=== PATIENT | female | born 1975 | race Caucasian/White ===

== ENCOUNTER 2018-05-25 12:43 | Emergency (ER) | payer MEDICAID ==
[2018-05-25 13:05] VITALS: BP 133/64
[2018-05-25] MEDS ORDERED: Proparacaine 0.5% Ophth Soln 15 ML Bottle EYEBOTH STA (13:38)
--- NOTE | 2018-05-25 13:54 | EDM.PDOC ---
ED HPI GENERAL MEDICAL PROBLEM - General Chief Complaint: Eye Problems Stated Complaint: POSSIBLE SMALL PARTICLE IN LEFT EYE Time Seen by Provider: 05/25/18 13:34 Source of Information: Reports: Patient, Family, RN Notes Reviewed History Limitations: Reports: No Limitations - History of Present Illness INITIAL COMMENTS - FREE TEXT/NARRATIVE: 42-year-old female presents to the emergency department day complaint of pain in her left thigh, she was doing some woodworking yesterday feels she may have gotten a piece of something in her eye and she was wearing safety glasses, Bilateral Eye Pain Score (Numeric/FACES): 6 - Related Data Allergies Allergy/AdvReac Type Severity Reaction Status Date / Time No Known Allergies Allergy Verified 09/28/16 10:36 Home Meds: Home Meds ALPRAZolam [Xanax] 0.25 mg PO TID PRN 09/26/16 [History] Baclofen 1.5 tab PO TID 09/26/16 [History] Cholecalciferol (Vitamin D3) [Vitamin D3] 5,000 unit PO ASDIRECTED 09/26/16 [ History] Cyanocobalamin (Vitamin B12) [Vitamin B12] 1,000 mcg IJ Q21D 09/26/16 [History] Doxepin HCl [Doxepin] 100 mg PO BEDTIME 09/26/16 [History] Folic Acid 1 mg PO DAILY 09/26/16 [History] Hydrochlorothiazide 25 mg PO DAILY 09/26/16 [History] Levothyroxine Sodium [Synthroid] 200 mcg PO ACBREAKFAST 09/26/16 [History] Multivitamins [Childrens Chewable Vitamin] 1 tab PO BID 09/26/16 [History] Nystatin [Nystatin Crm] 1 applic TP ASDIRECTED 09/26/16 [History] Omeprazole Magnesium [Prilosec Otc] 40 mg PO ACBREAKFAST 09/26/16 [History] Ondansetron [Zofran] 2 tab PO Q8H PRN 09/26/16 [History] Pregabalin [Lyrica] 50 mg PO TID 09/26/16 [History] Venlafaxine [Effexor XR] 150 mg PO DAILY 09/26/16 [History] Vitamin B Complex [B Complex] 1 tab PO DAILY 09/26/16 [History] buPROPion HCl [Wellbutrin Xl] 450 mg PO DAILY 09/26/16 [History] rOPINIRole [Requip] 0.25 mg PO BEDTIME 09/26/16 [History] traZODone 100 mg PO BEDTIME 09/26/16 [History] Morphine [MS Contin] 30 mg PO BID 09/28/16 [History] Acetaminophen/oxyCODONE [Percocet 325-5 MG] 1 - 2 tab PO Q4H PRN #50 tablet 10/19 [Rx] Bisacodyl [Dulcolax] 10 mg PO BID #100 tablet 10/04/16 [Rx] Docusate Sodium [Colace] 100 mg PO BID #100 cap 10/04/16 [Rx] Enoxaparin Sodium [Lovenox] 100 mg IM DAILY #4 ml 10/04/16 [Rx] Hydrocodone/Acetaminophen [Hydrocodon-Acetaminophen 5-325] 1 tab PO QID #0 10/04 [Rx] Warfarin [Coumadin] 2.5 mg PO ASDIRECTED #0 10/04/16 [Rx] Past Medical History HEENT History: Reports: Allergic Rhinitis, Impaired Vision Cardiovascular History: Reports: Hypertension Gastrointestinal History: Reports: Bowel Obstruction, Cholelithiasis, Chronic Constipation, Colon Polyp, GERD, Pancreatitis [employer]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: , Spontaneous Musculoskeletal History: Reports: Back Pain, Chronic, Fracture Psychiatric History: Reports: Anxiety, Depression Endocrine/Metabolic History: Reports: Hypothyroidism, Obesity/BMI 30+ Hematologic History: Reports: Blood Transfusion(s) - Infectious Disease History Infectious Disease History: Reports: Chicken Pox - Past Surgical History Cardiovascular Surgical History: Reports: None GI Surgical History: Reports: Bariatric Procedure, Cholecystectomy, Colonoscopy , Hernia, Abdominal, Hernia Repair/Other, Other (See Below) Female Surgical History: Reports: Section, D&C, Tubal Ligation Endocrine Surgical History: Reports: None Neurological Surgical History: Reports: Discectomy, Spinal Fusion Social & Family History - Tobacco Use Smoking Status *Q: Never Smoker - Caffeine Use Caffeine Use: Reports: Coffee, Tea - Recreational Drug Use Recreational Drug Use: No ED ROS GENERAL - Review of Systems Review Of Systems: See Below HEENT: Reports: Eye Discharge, Eye Pain ED EXAM GENERAL W FULL EYE - Physical Exam Exam: See Below Exam Limited By: No Limitations General Appearance: Alert, WD/WN, No Apparent Distress Eye Exam: Left Eye: Corneal Abrasion, Foreign Body, Bilateral Eye: EOMI, Normal Inspection, PERRL Visual Acuity (L) 20/: 100 With Correction: Yes Eyelids: Left: Foreign Body Conjunctiva & Sclera: Bilateral: Normal Appearance Cornea Exam: Right: Normal Appearance, Left: Corneal Abrasion Extraocular Movements: Bilateral: Intact Pupils: Normal Accommodation Pupillary Size: Bilateral: 5 mm Pupillary Reaction: Bilateral: Brisk Anterior Chamber: Bilateral: Normal Appearance Respiratory/Chest: No Respiratory Distress Course - Vital Signs Last Recorded V/S: Last Vital Signs Temp 97.0 F 05/25/18 13:06 Pulse 85 05/25/18 13:06 Resp 16 05/25/18 13:06 BP 133/64 05/25/18 13:06 Pulse Ox 95 05/25/18 13:06 - Orders/Labs/Meds Meds: Medications Discontinued Medications Generic Name Dose Route Start Last Admin Trade Name Freq PRN Reason Stop Dose Admin Proparacaine HCl 1 ml 05/25/18 13:38 Proparacaine 0.5% Ophth Soln EYEBOTH 05/25/18 13:39 NOW STA Departure - Departure Time of Disposition: 13:53 Disposition: Home, Self-Care 01 Condition: Good Clinical Impression: Corneal abrasion Qualifiers: Encounter type: initial encounter Laterality: left Qualified Code(s): S05.02XA - Injury of conjunctiva and corneal abrasion without foreign body, left eye, initial encounter - Discharge Information Referrals: Barrett La MD [Primary Care Provider] - Additional Instructions: Continue to use antibiotics until reevaluated by eye care provider, call return to the emergency department with worsening of symptoms - Assessment/Plan Plan: Assessment Acuity = acute Site and laterality = corneal abrasion left eye Etiology = secondary to foreign body Manifestations = pain Location of injury = Home Lab values = none Plan Tetanus is up-to-date, she'll be placed on gentamicin ophthalmic drops 2 drops every 4 hours have her reevaluated by her eye care provider in 2-3 days This note was dictated using [employer] voice recognition software please call with any questions on syntax or grammar.
== END 2018-05-25 14:03 | disposition home or self-care (01) ==
LOC: JP.ED 12:43
DX: T15.12XA Foreign body in conjunctival sac, left eye, initial encounter (principal); I10 Essential (primary) hypertension; E03.9 Hypothyroidism, unspecified; Z79.899 Other long term (current) drug therapy
CPT/HCPCS: 99283; A9270

== ENCOUNTER 2018-12-21 14:01 | Emergency (ER) | payer MEDICAID ==
[2018-12-21 14:21] VITALS: BP 150/78
--- NOTE | 2018-12-21 15:42 | EDM.PDOC ---
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 Today she was running in the yard and ran into a fire hydrant and bruised both of her lower legs. She is worried about this because she is on the Coumadin. Bilateral Lower Leg Pain Score (Numeric/FACES): 8 - Related Data Allergies Allergy/AdvReac Type Severity Reaction Status Date / Time gabapentin Allergy Other Verified 12/21/18 14:20 Home Meds: Home Meds ALPRAZolam [Xanax] 0.25 mg PO TID PRN 09/26/16 [History] Baclofen 1.5 tab PO TID 09/26/16 [History] Cholecalciferol (Vitamin D3) [Vitamin D3] 5,000 unit PO ASDIRECTED 09/26/16 [ History] Cyanocobalamin (Vitamin B12) [Vitamin B12] 1,000 mcg IJ Q21D 09/26/16 [History] Doxepin HCl [Doxepin] 100 mg PO BEDTIME 09/26/16 [History] Folic Acid 1 mg PO DAILY 09/26/16 [History] Hydrochlorothiazide 25 mg PO DAILY 09/26/16 [History] Levothyroxine Sodium [Synthroid] 200 mcg PO ACBREAKFAST 09/26/16 [History] Multivitamins [Childrens Chewable Vitamin] 1 tab PO BID 09/26/16 [History] Nystatin [Nystatin Crm] 1 applic TP ASDIRECTED 09/26/16 [History] Omeprazole Magnesium [Prilosec Otc] 40 mg PO ACBREAKFAST 09/26/16 [History] Ondansetron [Zofran] 2 tab PO Q8H PRN 09/26/16 [History] Pregabalin [Lyrica] 50 mg PO TID 09/26/16 [History] Venlafaxine [Effexor XR] 150 mg PO DAILY 09/26/16 [History] Vitamin B Complex [B Complex] 1 tab PO DAILY 09/26/16 [History] buPROPion HCl [Wellbutrin Xl] 450 mg PO DAILY 09/26/16 [History] rOPINIRole [Requip] 0.25 mg PO BEDTIME 09/26/16 [History] traZODone 100 mg PO BEDTIME 09/26/16 [History] Morphine [MS Contin] 30 mg PO BID 09/28/16 [History] Acetaminophen/oxyCODONE [Percocet 325-5 MG] 1 - 2 tab PO Q4H PRN #50 tablet 10/19 [Rx] Bisacodyl [Dulcolax] 10 mg PO BID #100 tablet 10/04/16 [Rx] Docusate Sodium [Colace] 100 mg PO BID #100 cap 10/04/16 [Rx] Enoxaparin Sodium [Lovenox] 100 mg IM DAILY #4 ml 10/04/16 [Rx] Hydrocodone/Acetaminophen [Hydrocodon-Acetaminophen 5-325] 1 tab PO QID #0 10/04 [Rx] Warfarin Sodium [Coumadin] 7.5 mg PO .M .F 12/21/18 [History] Warfarin [Coumadin] 5 mg PO .SAT .Sat12/21/18 [History] Past Medical History HEENT History: Reports: Allergic Rhinitis, Impaired Vision Cardiovascular History: Reports: Hypertension Gastrointestinal History: Reports: Bowel Obstruction, Cholelithiasis, Chronic Constipation, Colon Polyp, GERD, Irritable Bowel Syndrome, Pancreatitis, Other ( See Below) Other Gastrointestinal History: Superior mesenteric vein trombosis [employer]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: , Spontaneous Musculoskeletal History: Reports: Back Pain, Chronic, Fracture Psychiatric History: Reports: Anxiety, Depression, Suicide Attempt, Suicidal Ideation Endocrine/Metabolic History: Reports: Hypothyroidism, Obesity/BMI 30+ Hematologic History: Reports: Blood Transfusion(s) - Infectious Disease History Infectious Disease History: Reports: Chicken Pox - Past Surgical History Cardiovascular Surgical History: Reports: None GI Surgical History: Reports: Bariatric Procedure, Cholecystectomy, Colon, Colonoscopy, Hernia, Abdominal, Hernia Repair/Other Endocrine Surgical History: Reports: None Neurological Surgical History: Reports: Discectomy, Lumbar Spine, Spinal Fusion Social & Family History - Tobacco Use Smoking Status *Q: Never Smoker - Caffeine Use Caffeine Use: Reports: Coffee, Soda - Recreational Drug Use Recreational Drug Use: No Review of Systems - Review of Systems Review Of Systems: ROS reveals no pertinent complaints other than HPI. ED EXAM, GENERAL - Physical Exam Exam: See Below Exam Limited By: No Limitations General Appearance: Alert, WD/WN, Other Extremities: Other (She has contusions to the anterior surface of both calves at about the midpoint. Both of them look like they may be forming some small hematomas both are tender. Nothing really needs to be done with them other than put ice on them consider an Ronald wrap but today she felt like it would cause more pain.) Course - Vital Signs Last Recorded V/S: Last Vital Signs Temp 36.3 C 12/21/18 14:11 Pulse 99 12/21/18 14:11 Resp 150 H 12/21/18 14:11 BP 150/78 H 12/21/18 14:11 Pulse Ox 97 12/21/18 14:11 Departure - Departure Time of Disposition: 15:40 Disposition: Home, Self-Care 01 Condition: Fair Clinical Impression: Contusion, lower limb, multiple sites - Discharge Information Referrals: Barrett La MD [Primary Care Provider] - Additional Instructions: The bruises may actually turn into hematomas from some blood collection under the skin. This is not a serious condition although it may be painful. The blood collections should not get much larger. Putting ice on them may help. A Ronald bandage may help a little bit but might just cause more pain. Use Tylenol for pain. Avoid any kind of nonsteroidal anti-inflammatory such as ibuprofen or naproxen.
== END 2018-12-21 16:03 | disposition home or self-care (01) ==
LOC: JP.ED 14:01
DX: S80.12XA Contusion of left lower leg, initial encounter (principal); S80.11XA Contusion of right lower leg, initial encounter; I10 Essential (primary) hypertension; F41.9 Anxiety disorder, unspecified; F32.9 Major depressive disorder, single episode, unspecified; E03.9 Hypothyroidism, unspecified; Z79.899 Other long term (current) drug therapy; Z79.01 Long term (current) use of anticoagulants; Z88.8 Allergy status to other drugs, medicaments and biological substances; I82.493 Acute embolism and thrombosis of other specified deep vein of lower extremity, bilateral; W22.8XXA Striking against or struck by other objects, initial encounter
CPT/HCPCS: 99283

== ENCOUNTER 2019-06-18 07:27 | Day surgery (SDC) | payer MEDICAID ==
[2019-06-18] MEDS ORDERED: Propofol 200 MG/20 ML SDV ONE (07:55)
[2019-06-18] MEDS ORDERED: Midazolam 1 MG/ML 2 ML SDV ONE (07:55)
[2019-06-18] MEDS ORDERED: fentaNYL 100 MCG/2 ML SDV ONE (07:55)
[2019-06-18] MEDS ORDERED: Dextrose 5%-Lactated Ringers 1,000 ML IV SCH (08:00)
[2019-06-18 12:33] VITALS: BP 124/84; PULSE 66
--- NOTE | 2019-06-22 11:39 | OR ---
DATE OF PROCEDURE: 06/18/2019 SURGEON: Delroy Romero MD PREOPERATIVE DIAGNOSIS: Rectal bleeding. POSTOPERATIVE DIAGNOSIS: Rectal bleeding associated with excoriated hemorrhoids. PROCEDURE PERFORMED: Flexible colonoscopy. ANESTHESIA: IV sedation. INDICATION FOR PROCEDURE: This is a 43-year-old female presenting with some rectal bleeding. This is more or less bleeding generally following a bowel movement. The plan is to proceed with a colonoscopy with biopsies and/or polypectomy as indicated. Potential risks including bleeding and perforation were discussed, and the patient wishes to proceed. DETAILS OF PROCEDURE: The patient was taken to the operating room, placed in a left lateral decubitus position. IV sedation was administered, after which the initial digital rectal exam was performed and was unremarkable. The colonoscope was then passed into the rectum. The patient was noted to have some excoriated hemorrhoids. These were mixed hemorrhoids and that would not potentially be amenable to banding. The scope was eventually passed to the cecum. The prep was fairly good with only small amount of liquid stool being present. To that level, no additional abnormalities were noted, specifically there were no areas of diverticulosis. No areas of colitis, and no polyps or other signs of neoplasia. The scope was then withdrawn, and the area of excoriated hemorrhoids was reconfirmed, and the procedure then concluded. The patient was taken to the recovery room in satisfactory condition. Recommendation at this point will be to have the patient treat her hemorrhoids on a p.r.n. basis with Preparation H with hydrocortisone. Again, these hemorrhoids would not be amenable to banding and ongoing significant bleeding of these will require more of a focused hemorrhoidectomy. Delroy Romero MD /[id number]
== END 2019-06-18 12:45 | disposition home or self-care (01) ==
LOC: JP.SDS 07:27
PROVIDERS: ATTEND Surgery
DX: K64.8 Other hemorrhoids (principal); I10 Essential (primary) hypertension; E78.5 Hyperlipidemia, unspecified; E03.9 Hypothyroidism, unspecified; K21.9 Gastro-esophageal reflux disease without esophagitis; K90.9 Intestinal malabsorption, unspecified; F32.9 Major depressive disorder, single episode, unspecified; Z88.8 Allergy status to other drugs, medicaments and biological substances; Z98.84 Bariatric surgery status
CPT/HCPCS: 45378; J2250; J2704; J3010; J7042

== ENCOUNTER 2021-01-09 06:46 | Day surgery (SDC) | payer MEDICAID ==
[~2021-01-09 06:46] MED LIST: Acetaminophen 500 MG Tab PO ONE; Celecoxib 200 MG Cap PO ONE
[2021-01-09] MEDS ORDERED: Propofol 200 MG/20 ML SDV ONE ×2 (06:50→07:28)
[2021-01-09] MEDS ORDERED: fentaNYL 100 MCG/2 ML SDV ONE (06:50)
[2021-01-09] MEDS ORDERED: Midazolam 1 MG/ML 2 ML SDV ONE (06:50)
[2021-01-09] MEDS ORDERED: Dextrose 5%-Lactated Ringers 1,000 ML IV SCH (07:15)
[2021-01-09] MEDS ORDERED: Ondansetron 4 MG/2 ML SDV ONE (07:28)
[2021-01-09] MEDS ORDERED: fentaNYL 250 MCG/5 ML SDV ONE (07:28)
[2021-01-09] MEDS ORDERED: Glycopyrrolate 0.2 MG/ML 5 ML MDV ONE (07:28)
[2021-01-09] MEDS ORDERED: Dexamethasone 4 MG/ML SDV ONE (07:28)
[2021-01-09] MEDS ORDERED: Rocuronium 50 MG/5 ML Vial ONE (07:28)
[2021-01-09] MEDS ORDERED: Neostigmine Methylsulfate 1 MG/ML 5 ML Syringe ONE (07:28)
[2021-01-09] MEDS ORDERED: Succinylcholine 200 MG/10 ML MDV ONE (07:28)
[2021-01-09] MEDS ORDERED: Meropenem 500 MG in Sodium Chloride 0.9% 50 ML IV ONE (08:00)
[2021-01-09] MEDS: Bupivacaine 0.5%/EPINEPHrine 1:200,000 50 ML MDV ONE ×3 (08:16→10:23)
[2021-01-09 11:45] VITALS: BP 103/62; PULSE 65
--- NOTE | 2021-01-24 16:36 | OR ---
DATE OF PROCEDURE: 01/09/2021 SURGEON: Delroy Romero MD PREOPERATIVE DIAGNOSIS: Persistent complaints of rectal bleeding and pain. POSTOPERATIVE DIAGNOSES: 1. Anal fissure. 2. Inflamed external hemorrhoidal tag. OPERATIVE PROCEDURES: Anal exam under anesthesia with: 1. Anal fissurectomy with lateral internal sphincterotomy (including 1 column of mixed hemorrhoid) ([id number]). 2. Excision of external hemorrhoidal tag ([id number]). ANESTHESIA: General. INDICATIONS FOR PROCEDURE: A 45-year-old female presenting with some chronic anal pain and bleeding. The plan is to proceed with anorectal examination under anesthesia with procedures including hemorrhoidectomies, anal fissurectomies with internal sphincterotomies and such, and the patient wishes to proceed. Potential risks including bleeding, infection, possibility of problems with fecal incontinence following the procedures as well as possible persistent pain and/or bleeding were all discussed, and the patient wishes to proceed. DETAILS OF PROCEDURE: The patient was taken to the operating room. After general endotracheal anesthesia was induced, placed in a lithotomy position and the perianal area prepped and draped. Initial digital and anoscopic examination confirmed an inflamed- appearing external hemorrhoidal tag, and more importantly the patient had a posteriorly- based anal fissure, which was likely accounting for the patient's symptoms, otherwise the anal fissure involved a single external hemorrhoidal column, but the remainder of the hemorrhoidal columns were otherwise unremarkable. Initially, the external hemorrhoid tag was excised with electrocautery. It had a fairly unhealthy base and no suturing was placed at that location. The posterior anal fissure was then excised in a linear fashion to provide some histologic evaluation ruling out problems such as Crohn disease. Once this was excised, that area was sutured with 4-0 Vicryl stitch. A left lateral internal sphincterotomy dividing the lower 2/3 of the internal sphincter on the left side was then accomplished with electrocautery, aided with some mosquito clamp dissection, and the mucosa was then reapproximated with 4-0 Vicryl stitch as well. All sites of the procedure were then anesthetized with 1% lidocaine mixed with Marcaine and the patient was taken from the operating room in satisfactory condition. There were no evident complications. Delroy Romero MD /[id number]
== END 2021-01-09 12:38 | disposition home or self-care (01) ==
LOC: JP.SDS 06:46
PROVIDERS: ATTEND Surgery
DX: K64.4 Residual hemorrhoidal skin tags (principal); K60.2 Anal fissure, unspecified; K62.89 Other specified diseases of anus and rectum; L28.0 Lichen simplex chronicus; D71 Functional disorders of polymorphonuclear neutrophils; E03.9 Hypothyroidism, unspecified; I10 Essential (primary) hypertension; E78.5 Hyperlipidemia, unspecified; M54.5 Low back pain; K55.059 Acute (reversible) ischemia of intestine, part and extent unspecified; E78.00 Pure hypercholesterolemia, unspecified; Z88.8 Allergy status to other drugs, medicaments and biological substances; Z79.899 Other long term (current) drug therapy
CPT/HCPCS: 88304; A9270-GY; J0330; J1100; J2185; J2250; J2405; J2704; J2710; J3010; J3490; J7121

== ENCOUNTER 2022-02-04 11:21 | Emergency (ER) | payer MEDICAID ==
[2022-02-04 11:47] VITALS: BP 115/64; PULSE 89
== END 2022-02-04 14:29 | disposition home or self-care (01) ==
LOC: JP.ED 11:21
DX: R21 Rash and other nonspecific skin eruption (principal); M25.511 Pain in right shoulder; M25.512 Pain in left shoulder; I10 Essential (primary) hypertension; E03.9 Hypothyroidism, unspecified; E66.9 Obesity, unspecified; Z68.32 Body mass index [BMI] 32.0-32.9, adult; Z88.5 Allergy status to narcotic agent; Z79.899 Other long term (current) drug therapy; Z79.01 Long term (current) use of anticoagulants
CPT/HCPCS: 36415; 80048; 85025; 85651; 86140; 99283